=== PATIENT | male | born 2000 ===

== ENCOUNTER 2024-12-07 09:47 | Outpatient (CLI) | payer OTHER | END 2024-12-07 10:10 | disposition home or self-care (01) | LOC: MRI 09:47 → RAD 09:47 → MRI 10:10 | PROVIDERS: ATTEND Orthopaedic Surgery | DX: X58.XXXA Exposure to other specified factors, initial encounter (principal); Y93.9 Activity, unspecified; Y92.9 Unspecified place or not applicable; Y99.9 Unspecified external cause status ==